=== PATIENT | female | born 1940 | race American Indian/Alaskan Native ===

== ENCOUNTER 2016-08-26 08:20 | Outpatient (CLI) | payer MEDICARE ==
--- NOTE | 2016-08-26 09:15 | Ultrasound Report ---
Right axillary ultrasound: History: Left breast cancer. Palpable right axillary nodule of indeterminate length of time. Patient cannot confirm engorgement since she has noticed it. Imaging over the area of concern does demonstrate a well-defined, relatively round echogenic nodule measuring 9 mm in greatest. It has a 4 mm echolucent asymmetry near its center. There is a thin layer of tissue between this nodule and skin. No communication with the skin identified. There is some color flow at its periphery. Impression: The findings are somewhat indeterminate. There are no overtly suspicious characteristics. This does not appear to represent a lymph node but could still represent an infected sebaceous gland or enlarged follicle. Recommendation: Clinical followup for any interval enlargement. Intervention could be performed based on your concern. BI-RADS CATEGORY: 2 = Benign ACR BI-RADS MAMMOGRAPHIC CODES: 0 = Needs additional imaging evaluation; 1 = Negative; 2 = Benign; 3 = Probably benign; 4 = Suspicious; 5 = Malignant; 6 = Known biopsy-proven malignancy COMMENT: 1. Dense breast tissue, i.e., adenosis, fibrocystic changes, etc., may obscure an underlying neoplasm. 2. Approximately 10% of cancers are not detected with mammography. 3. A negative mammography report should not delay biopsy if a clinically suspicious mass is present.
== END 2016-08-26 08:21 | disposition home or self-care (01) ==
LOC: US 08:20
PROVIDERS: ATTEND Internal Medicine
DX: N63 Unspecified lump in breast (principal); Z85.3 Personal history of malignant neoplasm of breast